=== PATIENT | male | born 1970 | race Caucasian/White ===

== ENCOUNTER 2019-03-06 13:00 | Day surgery (SDC) | payer BC ==
[2019-03-06] MEDS ORDERED: Ringers Lactate 1,000 ML IV ONE (13:08)
[2019-03-06] MEDS ORDERED: CEFAZOLIN/SWI 1gm 1 GM/10 ML SYR ONE (13:08)
[2019-03-06] MEDS: BUPIVACAINE 0.5% Inj,MDV 50 mL VIAL ONE ×2 (13:29→14:11)
[2019-03-06 13:30] LABS: Absolute Lymphocytes (CBC) 2.2 K/uL (0.7-4.9); Basophils % 0.7 % (0-1.3); Hematocrit 51.7 % (39.6-49.0); Lymphocytes % 27.6 % (15.3-44.8); MPV 8.1 fL (7.6-11.3)
[2019-03-06] MEDS ORDERED: PROPOFOL 200 MG/20 ML VIAL IV ONE (13:39)
[2019-03-06] MEDS ORDERED: LIDOCAINE 2% MPF 5 ML VIAL ONE (13:39)
[2019-03-06] MEDS ORDERED: MIDAZOLAM HCL 2 MG/2 ML INJ ONE (13:40)
[2019-03-06] MEDS ORDERED: FENTANYL CITR 250 MCG/5 ML ONE (13:40)
[2019-03-06] MEDS ORDERED: ONDANSETRON 4 MG/2 ML VIAL ONE (13:40)
--- NOTE | 2019-03-06 14:18 | P.BOP ---
Preoperative diagnosis: infected chest wall sub mass with abscess , cellulitis Postoperative diagnosis: same Primary procedure: Excision of infected chest wall sub mass with abscess [id number] Estimated blood loss: <10cc Specimen: mass and pus culture Findings: mass with multiloculated abscess Anesthesia: General Complications: None Transferred to: Recovery Room Condition: Good
[2019-03-06] MEDS: HYDROMORPHONE HCL 1 MG/ML INJ ONE ×2 (15:05→15:10)
[2019-03-06] MEDS: LABETALOL HCL 100 MG/20 ML ONE (15:13)
[2019-03-06] MEDS ORDERED: CODEINE 30MG/APAP 300MG TAB ONE (15:43)
[2019-03-06 16:09] VITALS: BP 131/97; TEMP 98.2; O2SAT 96
--- NOTE | 2019-03-07 02:30 | OP ---
Date of Procedure: 03/06/2019 Surgeon: Yong De Souza MD Preoperative Diagnosis: Infected chest wall subcutaneous mass with abscess and cellulitis. Postoperative Diagnosis: Infected chest wall subcutaneous mass with abscess and cellulitis. Procedure Performed: Wide excision of infected chest wall subcutaneous mass with drainage of an absc ess, all together is about 10 x 10 x 1 cm. Specimen: Mass and pus culture. Finding: Mass with multiloculated abscess. Anesthesia: General plus local. Indications: This is the case of a 48-year-old patient, comes to us with a fast growing and red ches t wall mass spreading redness into the shoulder area and it is also affecting his left arm. It is go ing to the area of left axilla, so we brought him immediately for surgery for removal of this infecte d chest wall mass and also had drainage of abscess. Benefits, alternatives, and risks including, but not limited to infection, bleeding, damage to adjacent structures, anesthesia complication, nonheali ng wound, MS, and even . He also understands this may not relieve the symptoms. He might need more than one surgical intervention. He understands he will require wound care. He signed the conse nt. Description Of Procedure: Patient was brought to the operating room, placed in supine position. Ane sthesia was done without complication. Chest wall was prepped and draped in sterile fashion. A wedg e incision was made in the skin. This led us into a removal of the mass and also into a multiloculat ed abscess. Multiple loculations were explored, opened, have to be drained with the mass removed. I t looked like an inflammatory mass. We are going to send that to the pathologist for a clarification . Area was irrigated. Hemostasis was obtained and then the area was packed with wet-to-dry dressing . Patient tolerated the procedure well. Patient was sent to Recovery in stable condition. Diagnosis: Infected chest wall subcutaneous mass with abscess drainage. Procedure: Excision of infected chest wall subcutaneous mass with abscess drainage. Disposition: Home. Activity: As tolerated. No heavy lifting. Followup: Follow up in my office in 1 week. Call for appointment [phone]. Keep area dry for 24 ho urs. Tomorrow, he will start with wet-to-dry dressing, normal saline. See orders. ELKIN/SHERYL Voice ID: [id number] Report ID: [id number]
== END 2019-03-06 16:05 | disposition home or self-care (01) ==
LOC: OR 13:00
PROVIDERS: ATTEND Surgery
PROC: 0JB60ZZ Excision of Chest Subcutaneous Tissue and Fascia, Open Approach (ICD-10-PCS; principal; 2019-03-06 14:30)
DX: L72.0 Epidermal cyst (principal); L02.213 Cutaneous abscess of chest wall; L03.313 Cellulitis of chest wall; K21.9 Gastro-esophageal reflux disease without esophagitis; Z72.0 Tobacco use
CPT/HCPCS: 87070; 85025; 36415; 87205; 88304; 87075; 11406; J2704; J2250; J3010; J1170; J0690; J7120; J2405

== ENCOUNTER 2024-07-02 12:56 | Emergency (ER) | payer BC ==
--- NOTE | 2024-07-02 13:59 | RAD REPORT ---
EXAMINATION: Stone Protocol CLINICAL INDICATION: Abdominal pain. Left flank pain TECHNIQUE: CT abdomen and pelvis was performed, without IV contrast, as per department protocol. Oral contrast not given. Axial, sagittal and coronal reconstructions were obtained. One or more of the following dose reduction techniques were used: Automated exposure control, adjustment of the mA and k V according to the patient size, and iterative reconstruction. Unless otherwise specified, incidental findings do not require dedicated imaging follow-up. COMPARISON: 2023 FINDINGS: The lack of intravenous and oral contrast limits the sensitivity of this exam for evaluation of solid visceral organs, vascular structures, and bowel A renal calculus not seen. No ureteral calculus. A bladder calculus not noted. No hydronephrosis Liver, spleen, pancreas and adrenals grossly normal No evidence of diverticulitis. Normal appendix. Small umbilical hernia IMPRESSION: Negative for a genitourinary calculus
[2024-07-02] MEDS ORDERED: ONDANSETRON 4 MG/2 ML VIAL ONE (15:21)
[2024-07-02] MEDS ORDERED: KETOROLAC 30 MG/ML INJ ONE (15:21)
[2024-07-02] MEDS ORDERED: NA CHLORIDE 0.9% 1,000 ML ONE (15:22)
[2024-07-02 15:41] LABS: Absolute Basophils 0.1 K/uL (0-0.5); Absolute Eosinophils 0.2 K/uL (0-0.5); Absolute Lymphocytes (CBC) 2.5 K/uL (0.7-4.9); Absolute Monocytes 0.5 K/uL (0.1-1.3); Absolute Neutrophil 5.1 K/uL (1.8-8.0); Basophils % 0.7 % (0-1.3); Eosinophils % 1.9 % (0-4.4); Hematocrit 46.6 % (39.6-49.0); Hemoglobin 15.8 g/dL (13.6-17.9); Lymphocytes % 29.5 % (15.3-44.8); MCH 29.1 pg (27.0-35.0); MCHC 33.9 g/dL (32.0-36.0); MCV 85.7 fL (80-100); MPV 7.8 fL (7.6-11.3); Monocytes % 6.2 % (3.3-12.3); Neutrophils % 61.7 % (41.7-73.7); Platelets 262 thou/uL (152-406); RBC Red Blood Cell Count 5.44 M/uL (4.33-5.43); Red Cell Distribution Width 13.1 % (12.1-15.2)
[2024-07-02 15:41] LABS: Specific Gravity 1.024 (1.005-1.030); Urine Bilirubin NEGATIVE (Negative); Urine Blood Negative (Negative); Urine Clarity Clear (Clear); Urine Color Light-Yellow (Yellow); Urine Glucose NEGATIVE (Negative); Urine Ketones NEGATIVE (Negative); Urine Microscopic Reflex YN NO UMIC; Urine Nitrite NEGATIVE (Negative); Urine Protein NEGATIVE (Negative); Urine Urobilinogen Normal (Normal); Urine pH 6.5 (5.0-7.0)
[2024-07-02 15:59] LABS: Albumin/Globulin Ratio 1.1 (1.1-1.8); Bilirubin Total 0.6 mg/dL (0.2-1.0); Globulin 3.5 g/dL (2.3-3.5); Protein, Total 7.5 g/dL (6.4-8.2)
[2024-07-02] MEDS ORDERED: HYDROCODONE/APAP 5/325 MG TAB ONE (16:09)
[2024-07-02] MEDS ORDERED: DIAZEPAM 5 MG TABLET ONE (16:09)
--- NOTE | 2024-07-02 16:10 | EDPHYS ---
Physician Documentation [facility] Name: Trey Zazueta Age: 54 yrs Sex: Male : 1970 Arrival Date: 07/02/2024 Time: 12:56 Bed IW1 Private MD: ED Physician True Roa HPI: 07/02 13:32 This 54 yrs old Male presents to ER via Unassigned with complaints of Back Pain. kb 13:32 Pt is a 54 year old male who presents for left flank pain that started 4 days ago and kb has gotten worse. States pain radiates around to abd and is worse with movement. Denies urinary symptoms, fever, n/v/d, injury.. Historical: - Allergies: 13:37 No Known Allergies; ld1 - Home Meds: 13:37 None [Active]; ld1 - PMHx: 13:37 None; ld1 - Immunization history:: Adult Immunizations up to date. - Infectious Disease History:: Denies. - Social history:: Smoking status: Patient denies any tobacco usage or history of. ROS: 13:31 Constitutional: As per HPI kb Exam: 13:31 Constitutional: This is a well developed, well nourished patient who is awake, alert, kb and in no acute distress. Head/Face: Normocephalic, atraumatic. ENT: Moist Mucous membranes Cardiovascular: Regular rate Respiratory: Respirations even and unlabored. No increased work of breathing. Talking in full sentences Skin: Warm, dry with normal turgor. Normal color. MS/ Extremity: Pulses equal, no cyanosis. Neurovascular intact. Full, normal range of motion. Neuro: Awake and alert, GCS 15, oriented to person, place, time, and situation. 13:31 Abdomen/GI: Inspection: abdomen appears normal, Bowel sounds: normal, Palpation: soft, in all quadrants, mild abdominal tenderness, in the left upper quadrant, 13:31 Back: CVA tenderness, that is moderate, is noted on the left, Vital Signs: 13:33 BP 155 / 99; Pulse 78; Resp 18; Temp 98(TE); Pulse Ox 96% on R/A; Weight 117.93 kg; ld1 Height 5 ft. 11 in. ; Pain 7/10; 13:33 Body Mass Index 36.26 (117.93 kg, 180.34 cm) ld1 13:33 Pain Scale: Adult ld1 MDM: 13:05 Medical Screening Exam initiated kb 13:33 Differential diagnosis: nephrolithiasis, UTI, strain. Data reviewed: vital signs, kb nurses notes. Historians other than the Patient: Spouse/Significant Other: . 16:08 Counseling: I had a detailed discussion with the patient and/or guardian regarding the kb historical points, exam findings, and any diagnostic results supporting the discharge/admit diagnosis, lab results, radiology results, the need for outpatient follow up, a family practitioner, to return to the emergency department if symptoms worsen or persist or if there are any questions or concerns that arise at home. 07/02 13:31 Order name: CBC with Diff; Complete Time: 15:52 kb 07/02 13:31 Order name: CMP; Complete Time: 16:07 kb 07/02 13:31 Order name: Lipase; Complete Time: 16:07 kb 07/02 13:31 Order name: Urinalysis w/ reflexes; Complete Time: 15:52 kb 07/02 13:31 Order name: CT Stone Protocol; Complete Time: 14:02 kb 07/02 13:31 Order name: IV Saline Lock; Complete Time: 15:29 kb 07/02 13:31 Order name: Labs collected and sent; Complete Time: 15:29 kb Administered Medications: 15:30 Drug: TORadol - Ketorolac IVP 15 mg IVP once Route: IVP; Site: right antecubital; ld1 15:30 Drug: Ondansetron IVP 4 mg IVP once; over 2 minutes Route: IVP; Site: right antecubital;ld1 15:30 Drug: NS 0.9% IV 1000 ml IV at 1 bolus Per protocol; to be given as a bolus over 60 ld1 minutes Route: IV; Rate: 1 bolus; Site: right antecubital; 16:14 Drug: Diazepam PO 5 mg PO once Route: PO; ld1 16:14 Drug: HYDROcodone-acetaminophen PO 5 mg-325 mg 1 tabs PO once Route: PO; ld1 Disposition Summary: 07/02/24 16:09 Discharge Ordered Notes: Location: Home kb Condition: Stable kb Diagnosis - Low back pain kb Followup: kb - With: Emergency Department - When: As needed - Reason: Worsening of condition Followup: kb - With: Private Physician - When: 2 - 3 days - Reason: Recheck today's complaints, Continuance of care, Re-evaluation by your physician Discharge Instructions: - Discharge Summary Sheet kb - Musculoskeletal Pain kb Forms: - Work release form kb - Medication Reconciliation Form kb - Antibiotic Education kb - Prescription Opioid Use kb - Patient Portal Instructions kb - Leadership Thank You Letter kb Prescriptions: - Diclofenac Sodium 75 mg Oral tablet, delayed release (enteric coated) - take 1 tablet ORAL route 2 times per day As needed; 30 tablet; Refills: 0, kb Product Selection Permitted - orphenadrine citrate 100 mg Oral Tablet Sustained Release - take 1 tablet ORAL route 2 times per day As needed; 20 tablet; Refills: 0, kb Product Selection Permitted Signatures: Dispatcher [employer] Anais Cortez, VASHTI-Marcia KINGSTON-Sujey Dawn RN RN ld1 Corrections: (The following items were deleted from the chart) 13:34 13:34 Stone Protocol+CT.RAD.BRZ ordered. AILYN ROBERTSON
--- NOTE | 2024-07-02 16:10 | ER ---
Nurse's Notes [facility] Name: Trey Zazueta Age: 54 yrs Sex: Male : 1970 Arrival Date: 07/02/2024 Time: 12:56 Bed IW1 Private MD: Diagnosis: Low back pain Presentation: 07/02 13:33 Chief complaint: Patient states: Left flank pain - radiating to front left abdomen. ld1 Coronavirus screen: At this time, the client does not indicate any symptoms associated with coronavirus-19. Ebola Screen: No symptoms or risks identified at this time. Initial Sepsis Screen: Does the patient meet any 2 criteria? No. Patient's initial sepsis screen is negative. Does the patient have a suspected source of infection? No. Patient's initial sepsis screen is negative. Risk Assessment: Do you want to hurt yourself or someone else? Patient reports no desire to harm self or others. Onset of symptoms was July 02, 2024 at 13:36. 13:33 Method Of Arrival: Ambulatory ld1 13:33 Acuity: BALTAZAR 3 ld1 Triage Assessment: 13:37 General: Appears in no apparent distress. uncomfortable, Behavior is calm, cooperative, ld1 appropriate for age. Pain: Complains of pain in left low back Pain radiates to left lower quadrant Pain currently is 7 out of 10 on a pain scale. Quality of pain is described as throbbing, Pain began suddenly. EENT: No signs and/or symptoms were reported regarding the EENT system. Neuro: Level of Consciousness is awake, alert, obeys commands, Oriented to person, place, time, situation. Cardiovascular: Capillary refill < 3 seconds Patient's skin is warm and dry. Respiratory: Airway is patent Respiratory effort is even, unlabored. GI: Abdomen is round non-distended. : Reports pain in left flank(s). Derm: No signs and/or symptoms reported regarding the dermatologic system. Musculoskeletal: Range of motion: intact in all extremities. Historical: - Allergies: 13:37 No Known Allergies; ld1 - Home Meds: 13:37 None [Active]; ld1 - PMHx: 13:37 None; ld1 - Immunization history:: Adult Immunizations up to date. - Infectious Disease History:: Denies. - Social history:: Smoking status: Patient denies any tobacco usage or history of. Screenin:15 [facility] ED Fall Risk Assessment (Adult) History of falling in the last 3 months, ld1 including since admission No falls in past 3 months (0 pts) Confusion or Disorientation No (0 pts) Intoxicated or Sedated No (0 pts) Impaired Gait No (0 pts) Mobility Assist Device Used No (0 pt) Altered Elimination No (0 pt) Score/Fall Risk Level 0 - 2 = Low Risk Oriented to surroundings, Hourly rounding (assess needs \T\ fall precautionary measures) done. Abuse screen: Denies threats or abuse. Denies injuries from another. Nutritional screening: No deficits noted. Tuberculosis screening: No symptoms or risk factors identified. Assessment: 16:15 Reassessment: ERP in triage assessing patient for discharge. ld1 Vital Signs: 13:33 BP 155 / 99; Pulse 78; Resp 18; Temp 98(TE); Pulse Ox 96% on R/A; Weight 117.93 kg; ld1 Height 5 ft. 11 in. ; Pain 7/10; 13:33 Body Mass Index 36.26 (117.93 kg, 180.34 cm) ld1 13:33 Pain Scale: Adult ld1 ED Course: 12:59 Patient arrived in ED. mr 13:05 Anais Ray FNP-C [facility] kb 13:05 True oRa MD is Attending Physician. kb 13:37 Triage completed. ld1 13:37 Arm band placed on right wrist. ld1 13:53 CT Stone Protocol In Process Unspecified. EDMS 15:30 Urinalysis w/ reflexes Sent. ld1 15:30 Inserted saline lock: 20 gauge in right antecubital area, using aseptic technique. ld1 Blood collected. Flushed with 10 mL NS. 16:15 No provider procedures requiring assistance completed. IV discontinued, intact, ld1 bleeding controlled, No redness/swelling at site. 16:16 Patient has correct armband on for positive identification. Call light in reach. Side ld1 rails up X2. Pulse ox on. NIBP on. Door closed. Noise minimized. Administered Medications: 15:30 Drug: TORadol - Ketorolac IVP 15 mg IVP once Route: IVP; Site: right antecubital; ld1 15:30 Drug: Ondansetron IVP 4 mg IVP once; over 2 minutes Route: IVP; Site: right antecubital;ld1 15:30 Drug: NS 0.9% IV 1000 ml IV at 1 bolus Per protocol; to be given as a bolus over 60 ld1 minutes Route: IV; Rate: 1 bolus; Site: right antecubital; 16:14 Drug: Diazepam PO 5 mg PO once Route: PO; ld1 16:14 Drug: HYDROcodone-acetaminophen PO 5 mg-325 mg 1 tabs PO once Route: PO; ld1 Medication: 16:16 VIS not applicable for this client. ld1 Outcome: 16:09 Discharge ordered by MD. patel 16:16 Discharged to home ambulatory, with family, ld1 16:16 Condition: stable 16:16 Discharge instructions given to patient, family, Instructed on discharge instructions, follow up and referral plans. medication usage, Demonstrated understanding of instructions, follow-up care, medications, Prescriptions given X 2, 16:16 Patient left the ED. ld1 Signatures: Dispatcher [employer] EDAnais Lloyd, VASHTI-C STEAM HOIST OPERATOR-Adali Monroe, Reg Reg Sujey Joyce, RN RN ld1
[2024-07-02 16:21] VITALS: BP 155/99; TEMP 98; O2SAT 96
== END 2024-07-02 16:16 | disposition home or self-care (01) ==
LOC: ER 12:56
DX: M54.50 Low back pain, unspecified (principal); R10.12 Left upper quadrant pain
CPT/HCPCS: 85025; 36415; 81003; 83690; 80053; 76377; 74176; J2405; J7030; 96374; 96375; 99284